=== PATIENT | female | born 1945 | race Two or more races ===

== ENCOUNTER 2022-12-20 17:02 | Inpatient (IN) | payer OTHER ==
[~2022-12-20] VITALS: Ht 147.3 cm; Wt 58.1 kg
[2022-12-20] MEDS ORDERED: AVALIDE 300-121 EACH (17:09)
[2022-12-20] MEDS ORDERED: LANTUS SOL100 UNIT/1 (17:09)
[2022-12-20] MEDS ORDERED: AMBIEN5 MG (17:10)
--- NOTE | 2022-12-20 17:12 | NUR ---
PTE ALERTA Y ORIENTADA POR DILLON ESFERAS CON BUEN PATRON RESPIRATORIO. REFIERE QUE DESDE HACE SAM SEMANA SIENTE DEBILIDAD Y "NUMBNESS" POR EL CUAL SIN MANO IZQUIERDA ESTA DEBIL Y SINTIO QUE LA BOCA SE LE VIRO. SE REALIZA EKG
--- NOTE | 2022-12-20 17:54 | NUR ---
PTE EVALAUDO POR MD [facility] [place] [facility] A PTE SE EDCUAA TPE SOBRE EL MISMO Y REFIERE ETENDER SE LLEVA AC[place]O ORDENES BAJO MEDIDAS ACEPTICAS. PTE PED A RESULTADOS DE LAB Y REALIZACION DE CT. SE LLEVA ACABO VENOPUNCION BAJO MEDIDAS ACEPTICAS.
[2022-12-20 18:01] LABS: HEMATOCRIT 41.7 % (36.0-45.00); HEMOGLOBIN 14.5 g/dL (12.0-15.00); MEAN CELL VOLUME 84.2 fL (80.00-100.00); MEAN CORPUSCULAR HEMOGLOBIN 29.2 pg (27.00-32.0); MEAN CORPUSCULAR HGB CONC 34.7 g/dl (32.0-36.0); PLATELET COUNT 310 K/uL (150-450); RED BLOOD COUNT 4.95 M/uL (4.00-6.00); RED CELL DISTRIBUTION WIDTH 14.8 % (11.5-14.5)
[2022-12-20 18:25] LABS: ALBUMIN 3.2 gm/dL (3.4-5.0); BILIRUBIN TOTAL 0.34 mg/dL (0.3-1.2); CREATININE SERUM 1.82 mg/dL (0.55-1.02); GFR 27.01; GLOBULINA 4.4 G/DL (2.4-3.5); POTASSIUM 4.62 mEq/L (3.5-5.1); TOTAL PROTEIN 7.6 gm/dL (6.4-8.2)
[2022-12-20 22:49] LABS: CKMB < 1.0 NG/ML (0.5-3.6); PHOSPHOKINASE CREATININE 80 U/L (26-192)
[2022-12-21 00:55] LABS: ABG PH 7.389 (7.35-7.45); ABG PO2 78.7 mmHg (80-100); ABG pCO2 42.6 mmHg (35-45); BASE EXCESS 0 mmol/l; BICARBONATE 25.1 mmol/l (23-25); Tco2 26.4 mmol/l; o2 21 %
[2022-12-21 00:56] LABS: allen test SATISFACTORY; puncture site RADIAL LEFT
[2022-12-21 00:57] LABS: SaO2 95.3 %
[2022-12-21 08:19] LABS: PHOSPHOKINASE CREATININE 66 U/L (26-192)
[2022-12-21 08:21] LABS: CKMB < 1.0 NG/ML (0.5-3.6)
[2022-12-21 08:36] LABS: URINE APPEARANCE Cloudy; URINE BILIRRUBIN Negative (NEGATIVE); URINE BLOOD Negative; URINE COLOR Yellow; URINE GLUCOSE Negative (NEGATIVE); URINE LEUKOCYTE Trace; URINE NITRATE Negative; URINE UROBILINOGEN 0.2 E.U./dl
[2022-12-21 08:43] LABS: URINE RBC 9.7 uL (0.0-20.8); URINE WBC 134.5 uL (0.0-23.2)
[2022-12-21 09:05] LABS: HEMATOCRIT 40.9 % (36.0-45.00); HEMOGLOBIN 14.1 g/dL (12.0-15.00); MEAN CELL VOLUME 84.3 fL (80.00-100.00); MEAN CORPUSCULAR HEMOGLOBIN 29.1 pg (27.00-32.0); MEAN CORPUSCULAR HGB CONC 34.5 g/dl (32.0-36.0); PLATELET COUNT 293 K/uL (150-450); RED BLOOD COUNT 4.85 M/uL (4.00-6.00); RED CELL DISTRIBUTION WIDTH 14.4 % (11.5-14.5)
[2022-12-21 09:12] LABS: INR 0.98; PARTIAL THROMBOPLASTIN TIME 27.5 SECONDS (22.0-34.0); PROTHROMBIN TIME 10.3 SECONDS (9.0-11.5)
[2022-12-21 09:14] LABS: URINE BACTERIA > 9821.5 uL (0.0-1933); URINE PROTEIN 100 (NEGATIVE)
[2022-12-21 09:52] LABS: ERYTHROCYTE SEDIMENTATION RATE 55 mm/hr
[2022-12-21 16:05] LABS: ALBUMIN 3.4 gm/dL (3.4-5.0); ALKALINE PHOSPHATASE 179 U/L (50-136); ALT/SGPT 33 U/L (12-78); ANION GAP 9 (10.0-20.0); AST/SGOT 22 U/L (15-37); BILIRUBIN TOTAL 0.46 mg/dL (0.3-1.2); BILIRUBIN,UNCONJUGATED 0.36 mg/dL (0.0-0.6); BLOOD UREA NITROGEN 21 mg/dL (7-18); BUN CREA RATIO 15 (7.0-25.0); CALCIUM 9.1 mg/dL (8.5-10.1); CARBON DIOXIDE 28 mEq/L (21-32); CHLORIDE 103 mmol/L (98-107); GFR 36.56; HDL 36 mg/dl (40-60); POTASSIUM 4.49 mEq/L (3.5-5.1); SODIUM 136 mmol/L (136-145); TOTAL PROTEIN 7.4 gm/dL (6.4-8.2)
[2022-12-21 16:08] LABS: BILIRUBIN,CONJUGATED < 0.10 mg/dL (0.0-0.2); C-REACTIVE PROTEIN 1.27 MG/DL (0.00-0.29); CHOL HDL RATIO 7.3 (0-5.0); LDL 104 mg/dl (0-130); OSMOLALITY SERUM 285 MOSM/KG (275-295); VLDL 121 (0-39)
[2022-12-21 16:09] LABS: CHOLESTEROL 261 mg/dL (0-200); GLUCOSE FASTING 286 mg/dL (65-100); TRIGLYCERIDES 605 mg/dL (0-150)
[2022-12-24 05:33] LABS: ALBUMIN 2.9 gm/dL (3.4-5.0); BILIRUBIN TOTAL 0.6 mg/dL (0.3-1.2); CREATININE SERUM 1.27 mg/dL (0.55-1.02); GFR 40.91; GLOBULINA 4.1 G/DL (2.4-3.5); POTASSIUM 4.37 mEq/L (3.5-5.1); T4 FREE 1.22 NG/ML (0.76-1.46); TSH 1.88 uIU/mL (0.358-3.74)
[2022-12-26] MEDS ORDERED: LIPITOR40 M1 PO ×2 (15:39)
[2022-12-26] MEDS ORDERED: Lantus 1000 UNITS/10 SUBCUTANEO ×2 (15:39)
[2022-12-26] MEDS ORDERED: LEVO-T137 MCG PO ×2 (15:39)
[2022-12-26] MEDS ORDERED: APRESOLINE 10MG10 MG PO ×2 (15:39)
[2022-12-26] MEDS ORDERED: AMLODIPINE BESYL5 MG PO ×2 (15:39)
[2022-12-26] MEDS ORDERED: INSULIN LI100 UNIT/1 SUBCUTANEO ×2 (15:39)
[2022-12-26] MEDS ORDERED: Lopid PO ×2 (15:39)
[2022-12-26] MEDS ORDERED: ZOLPIDEM TARTRA10 MG PO ×2 (15:39)
[2022-12-26] MEDS ORDERED: TOPROL XL25 M1 PO ×2 (15:39)
[2022-12-26] MEDS ORDERED: CLOPIDOGREL BIS75 MG PO ×2 (15:39)
== END 2022-12-26 17:22 | disposition home or self-care (01) | DRG 65 ==
LOC: ER 17:02 → MEDI 21:37
PROVIDERS: General Practice; ADMIT Internal Medicine; ATTEND Internal Medicine
PROC: B020ZZZ Computerized Tomography (CT Scan) of Brain (ICD-10-PCS; principal; 2022-12-20)
PROC: B030ZZZ Magnetic Resonance Imaging (MRI) of Brain (ICD-10-PCS; 2022-12-20)
PROC: B345ZZZ Ultrasonography of Bilateral Common Carotid Arteries (ICD-10-PCS; 2022-12-20)
PROC: B348ZZZ Ultrasonography of Bilateral Internal Carotid Arteries (ICD-10-PCS; 2022-12-20)
PROC: B246ZZZ Ultrasonography of Right and Left Heart (ICD-10-PCS; 2022-12-20)
PROC: 4A12X4Z Monitoring of Cardiac Electrical Activity, External Approach (ICD-10-PCS; 2022-12-21)
PROC: [UNRECOGNIZED PROCEDURE] (2022-12-23)
DX: I63.311 Cerebral infarction due to thrombosis of right middle cerebral artery (principal); G81.94 Hemiplegia, unspecified affecting left nondominant side; N17.8 Other acute kidney failure; Q60.0 Renal agenesis, unilateral; I65.22 Occlusion and stenosis of left carotid artery; E11.65 Type 2 diabetes mellitus with hyperglycemia; I80.8 Phlebitis and thrombophlebitis of other sites; G25.0 Essential tremor; E11.22 Type 2 diabetes mellitus with diabetic chronic kidney disease; I12.9 Hypertensive chronic kidney disease with stage 1 through stage 4 chronic kidney disease, or unspecified chronic kidney disease; N18.30 Chronic kidney disease, stage 3 unspecified; E03.9 Hypothyroidism, unspecified; Z79.4 Long term (current) use of insulin
CPT/HCPCS: 70544

== ENCOUNTER 2022-12-29 12:15 | Emergency (ER) | payer OTHER ==
[~2022-12-29] VITALS: Ht 157.5 cm; Wt 68.0 kg
[~2022-12-29 12:15] MED LIST: AMBIEN5 MG; AMLODIPINE BESYL5 MG PO; APRESOLINE 10MG10 MG PO; AVALIDE 300-121 EACH; CLOPIDOGREL BIS75 MG PO; INSULIN LI100 UNIT/1 SUBCUTANEO; LANTUS SOL100 UNIT/1; LEVO-T137 MCG PO; LIPITOR40 M1 PO; Lantus 1000 UNITS/10 SUBCUTANEO; Lopid PO; TOPROL XL25 M1 PO; ZOLPIDEM TARTRA10 MG PO
[2022-12-29 15:18] LABS: PH,URINE 5.5 (5.0-8.0); URINE APPEARANCE Clear; URINE BILIRRUBIN Negative (NEGATIVE); URINE BLOOD Negative; URINE COLOR Yellow; URINE GLUCOSE Negative (NEGATIVE); URINE LEUKOCYTE Small; URINE NITRATE Negative; URINE UROBILINOGEN 0.2 E.U./dl
[2022-12-29 15:22] LABS: URINE EPITHELIAL CELLS 9.8 uL (0.0-38.8); URINE RBC 2.1 uL (0.0-20.8); URINE WBC 84.8 uL (0.0-23.2)
[2022-12-29 15:29] LABS: URINE BACTERIA > 9821.5 uL (0.0-1933); URINE PROTEIN 100 (NEGATIVE)
[2022-12-29 15:47] LABS: HEMATOCRIT 41.8 % (36.0-45.00); HEMOGLOBIN 14.6 g/dL (12.0-15.00); MEAN CELL VOLUME 84.4 fL (80.00-100.00); MEAN CORPUSCULAR HEMOGLOBIN 29.6 pg (27.00-32.0); PLATELET COUNT 379 K/uL (150-450); RED BLOOD COUNT 4.95 M/uL (4.00-6.00); RED CELL DISTRIBUTION WIDTH 14.5 % (11.5-14.5)
[2022-12-29 16:17] LABS: ALBUMIN 3.4 gm/dL (3.4-5.0); BILIRUBIN TOTAL 0.54 mg/dL (0.3-1.2); CALCIUM 9.7 mg/dL (8.5-10.1); CREATININE SERUM 1.61 mg/dL (0.55-1.02); GFR 31.11; GLOBULINA 4.2 G/DL (2.4-3.5); POTASSIUM 4.58 mEq/L (3.5-5.1); TOTAL PROTEIN 7.6 gm/dL (6.4-8.2)
== END 2022-12-29 17:59 | disposition home or self-care (01) ==
LOC: ER 12:15
PROVIDERS: Emergency Medicine
DX: N39.0 Urinary tract infection, site not specified (principal); F50.89 Other specified eating disorder; Z86.73 Personal history of transient ischemic attack (TIA), and cerebral infarction without residual deficits; Z88.6 Allergy status to analgesic agent; Z88.0 Allergy status to penicillin; E11.9 Type 2 diabetes mellitus without complications; Z79.4 Long term (current) use of insulin; I10 Essential (primary) hypertension; E03.9 Hypothyroidism, unspecified
CPT/HCPCS: 36415; 96365; 99284; J3490

== ENCOUNTER 2024-06-02 12:49 | Outpatient (CLI) | payer OTHER | END 2024-06-02 12:52 | disposition home or self-care (01) | LOC: NUCLEAR 12:49 | PROVIDERS: ATTEND Internal Medicine | DX: M81.0 Age-related osteoporosis without current pathological fracture (principal); Z13.820 Encounter for screening for osteoporosis ==